=== PATIENT | female | born 1990 | race American Indian/Alaskan Native ===

== ENCOUNTER 2017-05-30 20:06 | Emergency (ER) | payer MEDICAID ==
[2017-05-30 20:19] VITALS: BMI 25.7
[2017-05-30 20:23] VITALS: BP 153/90; O2SAT 99
--- NOTE | 2017-05-30 21:29 | ED PDOC ---
Arrival/HPI - General Chief Complaint: Abdominal Pain Time Seen by Provider: 05/30/17 20:43 Historian: Patient - History of Present Illness Narrative History of Present Illness (Text): 05/30/17 21:25 A 26 year old female presents to the emergency department complaining of constant lower abdominal pain since last night. Patient notes her pain is mainly below her belly button, to the suprapubic region and describes it as a tight sensation. She reports having hemorrhoids which resolve overtime but she believes she has it again at this time. Patient denies any fever, chills, nausea , vomiting, diarrhea, dark or bloody stool, urinary symptoms, vaginal d/c, vaginal bleeding, dyspareunia, or any other complaints. PMD: Dr. Elisa Crystal Time/Duration: Other (Last night) Symptom Onset: Gradual Symptom Course: Unchanged, Other (Constant) Quality: Other Context: Home Past Medical History - Provider Review Nursing Documentation Reviewed: Yes - Past History Past History: Non-Contributing - Infectious Disease Hx of Infectious Diseases: None - Tetanus Immunization Tetanus Immunization: Unknown - Past Medical History Past Medical History: No Previous - Psychiatric Hx Substance Use: No - Past Surgical History Past Surgical History: No Previous - Anesthesia Hx Anesthesia: No - Suicidal Assessment Feels Threatened In Home Enviroment: No Family/Social History - Physician Review Nursing Documentation Reviewed: Yes Family/Social History: No Known Family HX Smoking Status: Never Smoked Hx Alcohol Use: No Hx Substance Use: No Allergies/Home Meds Allergies/Adverse Reactions: Allergies No Known Allergies Allergy (Verified 05/30/17 20:18) Review of Systems - Physician Review All systems were reviewed & negative as marked: Yes - Review of Systems Constitutional: absent: Fevers, Night Sweats Gastrointestinal: Abdominal Pain (lower abdominal pain below suprapubic region) , Other (Hemmrohoids). absent: Diarrhea, Nausea, Vomiting, Hematochezia Genitourinary Female: absent: Dysuria, Frequency, Hematuria, Urine Output Changes, Vaginal Bleeding Physical Exam Vital Signs Reviewed: Yes Vital Signs Temp Pulse Resp BP Pulse Ox 05/30/17 22:54 90 18 99 05/30/17 22:53 98.0 F 90 17 99 05/30/17 20:23 97.8 F 91 H 19 153/90 H 99 Temperature: Afebrile Blood Pressure: Hypertensive Pulse: Tachycardic Respiratory Rate: Normal Appearance: Positive for: Well-Appearing, Non-Toxic, Comfortable Pain Distress: None Mental Status: Positive for: Alert and Oriented X 3 - Systems Exam Head: Present: Atraumatic, Normocephalic Pupils: Present: PERRL Extroacular Muscles: Present: EOMI Conjunctiva: Present: Normal Mouth: Present: Moist Mucous Membranes Neck: Present: Normal Range of Motion Respiratory/Chest: Present: Clear to Auscultation, Good Air Exchange. No: Respiratory Distress, Accessory Muscle Use Cardiovascular: Present: Regular Rate and Rhythm, Normal S1, S2. No: Murmurs Abdomen: Present: Normal Bowel Sounds. No: Tenderness, Distention, Peritoneal Signs Rectal: Present: Rectal Tenderness, Hemorrhoids (+nonthrombosed hemorrhoid at 6o 'clock), Normal Rectal Tone, Other (Female RN Amber was present during the entire exam). No: Gross Blood, Melena, Nodule/Mass/Lesions Back: Present: Normal Inspection Upper Extremity: Present: Normal Inspection. No: Cyanosis, Edema Lower Extremity: Present: Normal Inspection. No: Edema Neurological: Present: GCS=15, CN II-XII Intact, Speech Normal Skin: Present: Warm, Dry, Normal Color. No: Rashes Psychiatric: Present: Alert, Oriented x 3, Normal Insight, Normal Concentration Medical Decision Making ED Course and Treatment: 05/30/17 21:25 Impression: A 26 year old female with lower abdominal pain below the suprapubic region. Plan: -- Urine culture -- Urinalysis -- Reassess and disposition Progress Notes: 05/30/17 22:00 UA shows evidence of UTI, urine culture sent. Urine hCG negative. Urine results discussed with the patient in great detail. Patient given prescription for Macrobid, Anusol cream and suppository, as well as a prescription for Colace. Patient advised to do sitz baths at home and she can apply [id number] Tucks pad for relief of pain. Otherwise instructed to follow up with primary care physician in 1-2 days without fail. Advised to take medication as prescribed. Return to the emergency room at any time for any new or worsening symptoms. Patient states she fully agrees with and understands discharge instructions. States that she agrees with the plan and disposition. Verbalized and repeated discharge instructions and plan. I have given the patient opportunity to ask any additional questions. - Lab Interpretations Lab Results: Lab Results 05/30/17 21:30: Urine Color Yellow, Urine Appearance Cloudy, Urine pH 6.0, Ur Specific [place] >= 1.030, Urine Protein 30 H, Urine Glucose (UA) Negative, Urine Ketones Negative, Urine Blood Trace-intact H, Urine Nitrate Negative, Urine Bilirubin Negative, Urine Urobilinogen 1.0 H, Ur Leukocyte Esterase Trace H, Urine RBC 2 - 5, Urine WBC 2 - 5, Ur Epithelial Cells 6 - 8, Calcium Oxalate Crystal Few, Amorphous Sediment Few, Urine Bacteria Mod - PA / SPECIAL EDUCATION PROFESSIONAL / Resident Statement MD/DO has reviewed & agrees with the documentation as recorded. - Scribe Statement The provider has reviewed the documentation as recorded by the Parrisibgilma Rodgers Provider Scribe Attestation: All medical record entries made by the Scribe were at my direction and personally dictated by me. I have reviewed the chart and agree that the record accurately reflects my personal performance of the history, physical exam, medical decision making, and the department course for this patient. I have also personally directed, reviewed, and agree with the discharge instructions and disposition. Disposition/Present on Arrival - Present on Arrival Any Indicators Present on Arrival: No History of DVT/PE: No History of Uncontrolled Diabetes: No Urinary Catheter: No History of Decub. Ulcer: No History Surgical Site Infection Following: None - Disposition Have Diagnosis and Disposition been Completed?: Yes Diagnosis: UTI (urinary tract infection), External hemorrhoid Disposition: HOME/ ROUTINE Disposition Time: 22:15 Patient Plan: Discharge Condition: STABLE Discharge Instructions (ExitCare): Hemorrhoids (ED), Urinary Tract Infection in Women (ED) Print Language: KYRGYZ Additional Instructions: Thank you for letting us take care of you today. You were treated for UTI, hemorrhoid. The emergency medical care you received today was directed at your acute symptoms. If you were prescribed any medication, please fill it and take as directed. It may take several days for your symptoms to resolve. Return to the Emergency Department if your symptoms worsen, do not improve, or if you have any other problems. Please contact your doctor in 2 days for re-evaluation and follow up. Bring any paperwork you were given at discharge with you along with any medications you are taking to your follow up visit. Our treatment cannot replace ongoing medical care by a primary care provider (PCP) outside of the emergency department. Thank you for allowing the [email or web address] team to be part of your care today. Prescriptions: Docusate [Colace] 100 mg PO BID #30 cap Hard Fat/Phenylephrine [place] [Anusol Suppository] 1 sup RC BID #28 sup Hydrocortisone 2.5% (Rectal) [Anusol-HC] 30 applic [place] BID #1 tube Nitrofurantoin Macrocrystals [Macrobid] 100 mg PO BID #14 cap Referrals: Elisa Crystal MD [Primary Care Provider] - Follow up with primary Forms: Free & Clear (Czech)
[2017-05-30 21:39] LABS: URINE BILIRUBIN NEGATIVE (NEGATIVE); URINE BLOOD TRACE-INTACT (NEGATIVE); URINE GLUCOSE (UA) NEGATIVE (NEGATIVE); URINE KETONE NEGATIVE (NEGATIVE); URINE LEUKOCYTE ESTERASE TRACE Leu/uL (NEGATIVE); URINE PROTEIN 30 mg/dL (<30 mg/dL)
[2017-05-30 21:53] LABS: URINE APPEARANCE CLOUDY (CLEAR); URINE COLOR YELLOW (YELLOW)
[2017-05-30 21:57] LABS: URINE AMORPHOUS SEDIMENT FEW; URINE BACTERIA MOD (NEG); URINE CALCIUM OXALATE CRYSTALS FEW /hpf
[2017-05-30 22:54] VITALS: PULSE 90; RESP 18; TEMP 98
== END 2017-05-30 22:54 | disposition home or self-care (01) ==
LOC: ED 20:06
DX: N39.0 Urinary tract infection, site not specified (principal); K64.4 Residual hemorrhoidal skin tags